=== PATIENT | male | born 1960 | race African-American/Black ===

== ENCOUNTER 2016-05-16 19:25 | Emergency (ER) | payer SELFPAY ==
[~2016-05-16] VITALS: Ht 170.2 cm; Wt 52.0 kg
[2016-05-17 01:09] VITALS: BP 100/68
== END 2016-05-17 04:34 | disposition home or self-care (01) ==
LOC: ER 19:30
DX: M54.2 Cervicalgia (principal); R07.81 Pleurodynia; M79.671 Pain in right foot; J45.909 Unspecified asthma, uncomplicated; F17.210 Nicotine dependence, cigarettes, uncomplicated; F12.10 Cannabis abuse, uncomplicated
CPT/HCPCS: 71010; 99283

== ENCOUNTER 2016-05-18 12:50 | Emergency (ER) | payer SELFPAY ==
[~2016-05-18] VITALS: Ht 177.8 cm; Wt 75.0 kg
[2016-05-18] MEDS ORDERED: SODIUM CHLORIDE 0.9% 1,000 ML IV ONE (13:47)
[2016-05-18 15:51] LABS: BASOPHILS % 0.9 % (0.0-2.0); EOSINOPHILS % 1.8 % (0.0-5.0); HEMATOCRIT. 37.2 % (42.0-52.0); LYMPHOCYTES % 16.3 % (20.0-50.0); MEAN CORPUSCULAR HEMOGLOBIN 26.9 pg (28.0-32.0); MEAN CORPUSCULAR HGB CONC 32.3 g/dL (31.0-37.0); MEAN CORPUSCULAR VOLUME 83.3 fL (80.0-94.0); MEAN PLATELET VOLUME 6.9 fl (7.4-10.4); MONOCYTES % 9.1 % (2.0-8.0); NEUTROPHILS % 71.9 % (40.0-76.0); PLATELET 332 x1000/uL (130-400); RED BLOOD CELL COUNT 4.46 mill/uL (4.7-6.1); RED CELL DISTRIBUTION WIDTH 15.3 % (11.6-14.6); WHITE BLOOD COUNT 8.9 x1000/uL (4.5-11.0)
[2016-05-18 15:57] LABS: PROTHROMBIN TIME 10.2 sec
[2016-05-18 16:06] LABS: ALANINE AMINOTRANSFERASE 32 IU/L (13-61); ANION GAP 11; CALCIUM 9.7 mg/dL (8.5-10.1); CARBON DIOXIDE 28 mEq/L (21-32); CHLORIDE 105 mEq/L (98-107); ETHANOL BLOOD < 10 mg/dL; INDEX HEMOLYSI 1 (1-3); INDEX ICTERIC 1 (1-4); INDEX LIPEMIC 1 (1-3); LIPASE 105 IU/L (73-393); TROPONIN I < 0.02 ng/mL (0.00-0.04); UREA NITROGEN BLOOD 22 mg/dL (7-21); eGFR > 60 mL/min (>60)
[2016-05-18 19:45] VITALS: BP 120/63
== END 2016-05-19 00:58 | disposition left against medical advice (07) ==
LOC: ER 13:02
DX: E86.0 Dehydration (principal); I95.9 Hypotension, unspecified; R53.1 Weakness; L60.0 Ingrowing nail; R03.0 Elevated blood-pressure reading, without diagnosis of hypertension; J44.9 Chronic obstructive pulmonary disease, unspecified; J45.909 Unspecified asthma, uncomplicated
CPT/HCPCS: 36415; 71010; 80053; 83605; 83690; 84484; 85025; 85610; 87040; 93005; 99285; G0482; Z7610; J7030

== ENCOUNTER 2016-05-18 22:54 | Emergency (ER) | payer SELFPAY ==
[~2016-05-18] VITALS: Ht 172.7 cm; Wt 73.0 kg
[2016-05-18 23:49] VITALS: BP 142/87
== END 2016-05-19 03:34 | disposition left against medical advice (07) ==
LOC: ER 22:54
DX: M79.671 Pain in right foot (principal); M25.559 Pain in unspecified hip; Z53.21 Procedure and treatment not carried out due to patient leaving prior to being seen by health care provider

== ENCOUNTER 2016-06-24 14:48 | Emergency (ER) | payer SELFPAY | END 2016-06-24 19:00 | disposition left against medical advice (07) | LOC: ER 14:49 | DX: Z48.01 Encounter for change or removal of surgical wound dressing (principal) ==

== ENCOUNTER 2016-06-28 09:43 | Emergency (ER) | payer SELFPAY ==
[~2016-06-28] VITALS: Ht 167.6 cm; Wt 66.0 kg
[2016-06-28] MEDS ORDERED: PREDNISONE 20MG TABLET PO STA (10:58)
[2016-06-28] MEDS ORDERED: IPRATROPIUM BROMIDE (0.02%) 0.5MG/2.5ML NEB HHN STA (10:58)
[2016-06-28] MEDS ORDERED: ALBUTEROL (0.083%) 2.5MG/3ML NEB HHN STA (10:58)
[2016-06-28 18:31] VITALS: BP 124/67
== END 2016-06-28 19:41 | disposition home or self-care (01) ==
LOC: ER 09:56
DX: M79.671 Pain in right foot (principal); G89.29 Other chronic pain; Z59.0 Homelessness; J45.909 Unspecified asthma, uncomplicated; Z86.73 Personal history of transient ischemic attack (TIA), and cerebral infarction without residual deficits
CPT/HCPCS: 94640; 99283; J7512; J7611; Z7610

== ENCOUNTER 2016-07-16 17:46 | Emergency (ER) | payer SELFPAY ==
[~2016-07-16] VITALS: Ht 177.8 cm; Wt 66.0 kg
[2016-07-16] MEDS ORDERED: ALBUTEROL (0.083%) 2.5MG/3ML NEB HHN ONE ×2 (19:00→20:15)
[2016-07-16] MEDS ORDERED: PREDNISONE 10MG TABLET PO ONE (20:15)
[2016-07-16] MEDS ORDERED: PREDNISONE 20MG TABLET PO ONE ×2 (20:30→22:00)
[2016-07-17 00:05] VITALS: BP 112/74
== END 2016-07-17 00:49 | disposition left against medical advice (07) ==
LOC: ER 19:16
DX: J45.909 Unspecified asthma, uncomplicated (principal); F17.210 Nicotine dependence, cigarettes, uncomplicated
CPT/HCPCS: 94640; 99283; J7512; J7611; Z7610

== ENCOUNTER 2016-08-06 20:24 | Emergency (ER) | payer SELFPAY ==
[~2016-08-06] VITALS: Ht 177.8 cm; Wt 66.0 kg
[2016-08-06 20:52] VITALS: BP 108/62
== END 2016-08-06 23:50 | disposition left against medical advice (07) ==
LOC: ER 20:25
DX: Z53.21 Procedure and treatment not carried out due to patient leaving prior to being seen by health care provider (principal)

== ENCOUNTER 2016-08-23 03:30 | Emergency (ER) | payer SELFPAY ==
[~2016-08-23] VITALS: Ht 177.8 cm; Wt 64.0 kg
[2016-08-23 03:35] VITALS: BP 161/94
== END 2016-08-23 09:26 | disposition left against medical advice (07) ==
LOC: ER 08:36
DX: J45.909 Unspecified asthma, uncomplicated (principal); Z53.21 Procedure and treatment not carried out due to patient leaving prior to being seen by health care provider

== ENCOUNTER 2016-08-24 19:38 | Emergency (ER) | payer SELFPAY ==
[~2016-08-24] VITALS: Ht 180.3 cm; Wt 63.5 kg
[2016-08-24 19:43] VITALS: BP 119/71
== END 2016-08-24 23:45 | disposition left against medical advice (07) ==
LOC: ER 19:40
DX: Z53.21 Procedure and treatment not carried out due to patient leaving prior to being seen by health care provider (principal)

== ENCOUNTER 2016-08-27 10:01 | Emergency (ER) | payer SELFPAY ==
[~2016-08-27] VITALS: Ht 172.7 cm; Wt 70.0 kg
[2016-08-27 14:10] VITALS: BP 135/58
== END 2016-08-27 17:15 | disposition left against medical advice (07) ==
LOC: ER 10:14
DX: M79.674 Pain in right toe(s) (principal); J45.909 Unspecified asthma, uncomplicated; F17.200 Nicotine dependence, unspecified, uncomplicated
CPT/HCPCS: 99283; Z7610

== ENCOUNTER 2016-08-28 18:50 | Emergency (ER) | payer SELFPAY ==
[~2016-08-28] VITALS: Ht 177.8 cm; Wt 70.0 kg
[2016-08-28 18:56] VITALS: BP 113/62
== END 2016-08-29 06:03 | disposition left against medical advice (07) ==
LOC: ER 21:02
DX: Z53.21 Procedure and treatment not carried out due to patient leaving prior to being seen by health care provider (principal)

== ENCOUNTER 2016-08-31 19:19 | Emergency (ER) | payer SELFPAY ==
[~2016-08-31] VITALS: Ht 177.8 cm; Wt 69.0 kg
[2016-08-31 19:24] VITALS: BP 123/78
== END 2016-08-31 23:05 | disposition left against medical advice (07) ==
LOC: ER 20:20
DX: Z53.21 Procedure and treatment not carried out due to patient leaving prior to being seen by health care provider (principal)

== ENCOUNTER 2016-09-06 00:55 | Emergency (ER) | payer OTHER ==
[~2016-09-06] VITALS: Ht 170.2 cm; Wt 66.0 kg
[2016-09-06 00:58] VITALS: BP 136/77
== END 2016-09-06 06:05 | disposition home or self-care (01) ==
LOC: ER 00:55
DX: S76.012A Strain of muscle, fascia and tendon of left hip, initial encounter (principal); J45.909 Unspecified asthma, uncomplicated; W01.0XXA Fall on same level from slipping, tripping and stumbling without subsequent striking against object, initial encounter; Y93.89 Activity, other specified; Y92.488 Other paved roadways as the place of occurrence of the external cause
CPT/HCPCS: 99283

== ENCOUNTER 2016-12-02 14:04 | Emergency (ER) | payer SELFPAY ==
[~2016-12-02] VITALS: Ht 177.8 cm; Wt 63.0 kg
[2016-12-02 14:16] VITALS: BP 98/60
== END 2016-12-02 20:35 | disposition left against medical advice (07) ==
LOC: ER 16:42
DX: J45.909 Unspecified asthma, uncomplicated (principal); Z53.21 Procedure and treatment not carried out due to patient leaving prior to being seen by health care provider

== ENCOUNTER 2018-07-15 16:30 | Emergency (ER) | payer MEDICAID ==
[~2018-07-15] VITALS: Ht 172.7 cm; Wt 80.0 kg
[2018-07-15 19:20] VITALS: BP 100/61
== END 2018-07-15 20:00 | disposition left against medical advice (07) ==
LOC: ER 17:26
DX: F10.129 Alcohol abuse with intoxication, unspecified (principal); J45.909 Unspecified asthma, uncomplicated; F17.210 Nicotine dependence, cigarettes, uncomplicated; I95.9 Hypotension, unspecified; Y90.9 Presence of alcohol in blood, level not specified
CPT/HCPCS: 99283; 99406; Z7610

== ENCOUNTER 2023-02-16 15:53 | Emergency (ER) | payer MEDICARE, MEDICAID ==
[~2023-02-16] VITALS: Ht 175.3 cm; Wt 69.0 kg
[2023-02-16 16:03] VITALS: O2SAT 95
[2023-02-16] MEDS ORDERED: LIDOCAINE HCL 1% 20ML VIAL (Pyxis) INJ INFIL ONE (16:45)
[2023-02-16 17:28] LABS: BASOPHILS % 1.2 % (0.0-2.0); EOSINOPHILS % 1.8 % (0.0-5.0); HEMOGLOBIN. 14.7 g/dL (14.0-18.0); LYMPHOCYTES % 23.9 % (20.0-50.0); MEAN CORPUSCULAR HEMOGLOBIN 32.7 pg (28.0-32.0); MEAN CORPUSCULAR HGB CONC 33.3 g/dL (31.0-37.0); MEAN CORPUSCULAR VOLUME 98.2 fL (80.0-94.0); MEAN PLATELET VOLUME 7.2 fl (7.4-10.4); MONOCYTES % 8.4 % (2.0-8.0); NEUTROPHILS % 64.7 % (40.0-76.0); PLATELET 273 x1000/uL (130-400); RED BLOOD CELL COUNT 4.48 mill/uL (4.7-6.1); RED CELL DISTRIBUTION WIDTH 13.9 % (11.6-14.6); WHITE BLOOD COUNT 3.8 x1000/uL (4.5-11.0)
[2023-02-16 17:48] LABS: ALANINE AMINOTRANSFERASE 28 IU/L (10-49); ASPARTATE AMINOTRANSFERASE 42 IU/L (<34); BILIRUBIN TOTAL 0.3 mg/dL (0.1-1.0); CALCIUM 10.1 mg/dL (8.7-10.4); CARBON DIOXIDE 25 mEq/L (21-32); CHLORIDE 99 mEq/L (98-107); ETHANOL BLOOD 137 mg/dL (<10); GLUCOSE 69 mg/dL (70-105); POTASSIUM 3.6 mEq/L (3.5-5.1); PROTEIN TOTAL 6.7 g/dL (6.0-8.3); SODIUM 137 mEq/L (136-145); TROPONIN I HIGH SENSITIVITY 4 ng/L (3.0-53); UREA NITROGEN BLOOD 14 mg/dL (9-23)
[2023-02-16 21:39] VITALS: BP 143/89; PULSE 60; RESP 18; TEMP 97.6
== END 2023-02-16 21:59 | disposition home or self-care (01) ==
LOC: ER 15:53
DX: S01.81XA Laceration without foreign body of other part of head, initial encounter (principal); F10.129 Alcohol abuse with intoxication, unspecified; J45.909 Unspecified asthma, uncomplicated; W01.0XXA Fall on same level from slipping, tripping and stumbling without subsequent striking against object, initial encounter; Y93.89 Activity, other specified; Y92.89 Other specified places as the place of occurrence of the external cause; Y99.8 Other external cause status
CPT/HCPCS: 36415; 70486; 80053; 80320; 84484; 85025; 93005; 99284; G0480